=== PATIENT | male | born 1980 | race Caucasian/White ===

== ENCOUNTER 2025-06-28 13:33 | Emergency (ER) | payer OTHER, SELFPAY ==
[2025-06-28 13:34] VITALS: BP 148/96
[2025-06-28 13:39] LABS: Glucose - Point of Care 104 mg/dl (70-99)
--- NOTE | 2025-06-28 13:41 | CON.NEURO ---
Addendum entered and electronically signed by Kevin Barillas MD 06/28/25 15:54:
Studies reviewed.
I have personally examined the patient. I reviewed and agree with the WHEEL INSTALLER's Note.
My addenda:
Awake, alert, interactive. No acute distress.
Speech intact.
Follows 2-step requests w/o difficulty. No tremor.
Extra-ocular movements grossly intact.
Facial movements full and symmetric. Hearing intact to normal conversational volume.
Normal UE movements bilaterally.
Neck: full ROM.
Chest: no dyspnea
Heart: no JVD
Ext: (-) Clubbing, (-) Cyanosis, (-) Edema
IMPRESSIONS/RECOMMENDATIONS:
Abrupt onset of aphasia with suggested left carotid artery occlusion and suggestion of superior sagittal sinus thrombosis with questionable apical blood
Differential diagnosis in this patient is that he is experiencing aphasia either due to an occlusion of the left distal carotid artery and/or thrombosis of the superior sagittal sinus.
Urgent transfer to [facility] due to possible need for clot extraction from the distal left carotid artery
Consideration for CT venogram due to the suggestion of superior distal sagittal sinus thrombosis and surrounding subarachnoid blood
Consideration for urgent initiation of heparin IV to remediate thrombosis
Total Critical Care Time=�40 minutes.
The neurological system is affected and the action required by me to prevent further deterioration or potential was control over the item listed first in the Impressions and Recommendations section of this note.
I was present and personally examined the patient.� I discussed patient care with other professional health care providers.
Also discussed with family.
All questions answered.
Will continue to follow patient.
Original Note:
Documented by User: Laura Valente NP 06/28/25 15:43
Neuro Assessment/Plan
Assessment
Patient is a 45 year old male with past medical history significant for HTN presenting to [facility] on 06/28/2025 for speech difficulty, headache and right arm and right face tingling.
Head CT: Unremarkable unenhanced CT of the head. ASPECT score: 10
CTA head and neck: Severe narrowing of the extracranial left internal carotid artery with possible focal occlusion distally. Reconstitution of the intracranial left ICA with patency of the proximal segment of the left middle cerebral artery.
Impression: abrupt onset of aphasia with right arm and right face tingling found to have L ICA occlusion on CTA
Plan
-transfer to [facility]
-continue neurochecks
All questions encouraged and answered, plan of care discussed with Dr. Barillas, Dr. Avilez, patient and family
Consultation
Order
Date of Consultation: 06/28/25
Requesting Provider: ED
Reason for Consult: stroke alert
Subjective/Objective
Subjective Data
Date of Service: June 28, 2025
Patient is a 45 year old male with past medical history significant for HTN presenting to [facility] on 06/28/2025 for speech difficulty, headache and right arm and right face tingling. He states his right arm and right face tingling started at 1330 today
along with speech difficulties which prompted him to come to ER as a stroke alert. He also notes he gets headaches once a month, and currently has headache on left side with eye ptosis 6/10 pain, denies nausea, photophobia or phonophobia. He states
his father at a young age of a brain aneurysm. In the ED his BP 130/93 HR 80. Current NIHSS 1 for mild aphasia as patient has some difficulty with naming objects. CTA head and neck concerning for severe narrowing of the extracranial left
internal carotid artery with possible focal occlusion distally. Head CT concerning for dural sinus thrombosis. Spoke with [facility] who recommended against TNK but plan to send out for evaluation of stent given left ICA occlusion. Plan to
transfer to [facility].
Objective Data
Vital Signs
Temp Pulse Resp BP
97.7 F 94 18 148/96
06/28/25 13:34 06/28/25 13:34 06/28/25 13:34 06/28/25 13:34
Patient Allergies
ENVIRONMENTAL Allergy (Uncoded 03/15/22 10:05)
Unknown
CVA Assessment
Onset of Stroke Symptoms
Onset of symptoms known: Yes
Date of onset of symptoms: 06/28/25
Time of onset of symptoms: 13:30
Time pt last seen normal is known: Yes
NIH Stroke Score
Level of Consciousness: 0 - Alert
LOC Questions: 0-Answers both correctly
LOC Commands: 0-Performs both correctly
Best Horizontal Gaze: 0-Normal
Visual Pacheco: 0=Normal, no visual loss
Facial Palsy: 0=Normal, symmetrical
Motor - Right Arm: 0=No drift 10 seconds
Motor - Left Arm: 0=No drift 10 seconds
Motor - Right Le-No drift 5 seconds
Motor - Left Le-No drift 5 seconds
Limb Ataxia: 0-Absent
Sensation: 0-Normal
Best Language: 1-Mild aphasia
Dysarthria: 0-Normal
Extinction and Inattention: 0-No abnormality
NIH Total Score:: 1
Tenecteplase Contraindications
Inclusion and Exclusion criteria reviewed: Yes
IAT Contraindications: NIHSS < 6
Modified Vernon Score (MRS)
-
Modified Vernon Scale (mRS): No significant disability. Able to carry out usual activities.
Score: 1
Physical Exam
-
General: Comfortable and Appears Stated Age
Eyes: PERRLA
HEENT: Normocephalic, Atraumatic and Anicteric
Neck: Full Range of Motion
Respiratory: No Dyspnea
Cardiac: No JVD
GI: Non-distended
Skin: Unremarkable
Extremities: No Clubbing, No Cyanosis and No Edema
Psych: Unremarkable
Extended Neurological Exam
Mood & Affect: Mood Unremarkable
Attention Span & Concentration: Awake, Alert, Interactive and No Difficulty with 2 Step Request
Memory: Unremarkable
Tremor: Hand Tremor Absent and Head Tremor Absent
Speech: Expressive Aphasia
Cranial Nerve II: Left Eye: Visual Pacheco Intact
Cranial Nerve II: Right Eye: Visual Pacheco Intact
Cranial Nerves III, IV, : Extraocular Movement: Ptosis on Left
Cranial Nerve VII: Facial Symmetry: Reduced (left eye)
Cranial Nerve VIII: Hearing: Unremarkable Hearing to Normal Conversational Volume
Cranial Nerves IX, X: Palate Movement: Palate Elevation Symmetric
Cranial Nerve XI: Shoulder Shrug: Unremarkable
Muscle Strength, Overall: Full Throughout
Pronator Drift: No Drift in Upper Extremities and No Drift in Lower Extremities
Coordination: Qhwdal-kilt-aluzif Testing Unremarkable and Reaches for Objects without Difficulty
Data Reviewed
-
CT-A: Report Reviewed and Image Reviewed
CT-Perfusion: Report Reviewed and Image Reviewed
CT Head: Report Reviewed and Image Reviewed
Labs: Report Reviewed
Reviewed with: Physician, Nurse, Patient and Family
Old Records: Summarized
Medications
-
Home Medications
�Medication �Instructions �Recorded
amlodipine 5 mg tablet 5 mg PO DAILY 03/12/22
cetirizine 10 mg tablet 10 mg PO DAILY 03/12/22
fluticasone propionate 50 2 spray intranasal DAILY 03/12/22
mcg/actuation nasal
spray,suspension
losartan 50 mg tablet 100 mg PO DAILY 03/12/22
Past History
Past History
ED Past Medical History: HTN
ED Past Surgical History: None
Family/Social History
Tobacco: Non-smoker
Alcohol: Occasional
Drug: None
Personal:
Living: with family
Employment: Employed
Family History: Other

Documented by User: Kevin Barillas MD 06/28/25 15:45
CVA Assessment
NIH Stroke Score
NIH Total Score:: 1
Modified Perico Score (MRS)
-
Score: 1
--- NOTE | 2025-06-28 13:50 | ED.CVA ---
History of Present Illness
General
Chief Complaint: CVA/TIA Symptoms
Source: patient and spouse
Exam Limitations: none
Time Seen by Provider: 06/28/25 13:44
Nursing documentation reviewed up to this point in time: agreed with
Onset of Stroke Symptoms
Onset of symptoms known: Yes
Date of onset of symptoms: 06/28/25
Time of onset of symptoms: 13:00
History of Present Illness
History of Present Illness:
45-year-old male history of hypertension through triage had headache for a week droopy eyelid for couple days slurred speech for an hour no history of seizures no history of stroke
Past History
Past History
ED Past Medical History: HTN
ED Past Surgical History: None
Social History
Tobacco: Non-smoker
Alcohol: Occasional
Drug: None
Personal:
Living: with family
Employment: Employed
Family History
Family History: Other
Review of Systems
Review of Systems
All Other Systems: Not applicable
Constitutional: Denies fever
EENT: Reports no symptoms
Respiratory: Reports no symptoms
Cardiac: Reports no symptoms
ABD/GI: Reports no symptoms
Neurological: Reports dizzy, headache and other (Speech abnormality)
Phy Exam
Physical Exam
Physical Exam:
Physical Exam
General: no apparent distress, not acutely ill
Neck: No tongue bite
Heart: s1/s2 regular rate and rhythm, no murmur. equal radial pulses.
Lungs: no acute respiratory distress. clear bilaterally
Abdomen: Soft nontender
Neuro: alert and oriented. Slight slurred speech
Skin: no rash
Psychiatric: well kept. interactive and cooperative
Extremities: no edema.
Course
Orders/Labs/Results
Orders:
Orders
06/28/25 13:45
Electrocardiogram (*1) Urgent
Reason for Study: Syncope
CT HEAD STROKE ALERT W/o Cont Urgent
Comment:
Reason For Exam: aphaisa
CT HEAD/NECK ANG STROKE ALERT Urgent
Comment:
Reason For Exam: aphasia
NEUROLOGY CONSULT Urgent
Consulting Provider: Kevin Barillas
Was physician already notified: Yes
Cardiac Monitoring- Treatment ONCE
EKG- Treatment ONCE
06/28/25 13:47
Add On- LAB Routine
Tests Added?: folate, ferritin, TSH, free t4, B12, lipid panel, hgb a1c
06/28/25 13:49
Complete Blood Count/With Diff Urgent
Ferritin Urgent
Folate Urgent
Free T4 Urgent
Glycohemoglobin (HgbA1c) Urgent
PTT Urgent
Prothrombin Time Urgent
TSH Urgent
Vitamin B12 Urgent
06/28/25 13:59
Prochlorperazine [Compazine] 10 mg IV NOW STA
Prochlorperazine [Compazine] 10 mg IV Q6HPRN PRN
06/28/25 14:43
CT BRAIN PERF STROKE ALERT Urgent
Comment:
Reason For Exam: aphasia
06/28/25 15:26
Cardiovascular Evaluation Urgent
Comprehensive Metabolic Panel Urgent
Abnormal Lab Results
06/28/25 06/28/25 06/28/25
13:39 13:49 15:26
MPV 10.6 H fL
(7.4-10.4)
Creatinine 0.6 L mg/dL
(0.7-1.3)
Triglycerides 158 H mg/dl
(10-149)
Total Cholesterol 230 H mg/dl
(50-199)
VLDL Cholesterol, Calc 31 H mg/dl
(0-30)
POC Glucose 104 H mg/dl
(70-99)
06/28/25 13:49
06/28/25 15:26
Vital Signs
Initial and Last Documented VS:
Initial Vital Signs
Temp Pulse Resp BP
97.7 F 94 18 148/96
06/28/25 13:34 06/28/25 13:34 06/28/25 13:34 06/28/25 13:34
Last Documented Vital Signs
Temp Pulse Resp BP Pulse Ox
97.7 F 85 17 136/88 99
06/28/25 13:34 06/28/25 15:30 06/28/25 15:30 06/28/25 15:17 06/28/25 14:00
MDM/Problems Addressed
Differential Diagnosis Includes:
Migraine stroke intracerebral hemorrhage seizure Zachary's paralysis
MDM/Problems Addressed:
Slurred speech headache
Chronic conditions affecting care: HTN
Acute Exacerbation and/or Progression of Chronic Illness: HTN
*Radiology
Radiology exam reviewed: radiology read reviewed
*Pulse Oximetry
SaO2: 99
Oxygen Mode of Delivery: Room air
Patient hypoxic: no
*EKG
Interpreted by ED Provider?: Yes
Interpretation: abnormal
Comparison EKG: no comparison EKG present
Heart Rate: 78
Rate: normal
Rhythm: sinus
Ischemia: non-specific ST changes
*Sintering Plant Supervisor Interpretation
Rate: normal
Interpretation: normal
Heart Rate: 78
Rhythm: sinus
*Critical Care Note
Total Time (30-74mins, 75-104mins- exclusive of procedures): 76
Update Note
Update Note:
230p
dw radiology
occulusion left ICA
dw neuro
dw patient
symtpoms inproved
to HUP
NIH 1
ED Attending Note
-
Portions of this chart may have been created with voice recognition software.� Occasional wrong word or��sound alike� substitutions may have occurred due to the inherent limitations of voice recognition software.
Discharge Plan
Departure
Patient Disposition: Acute Care Hospital
Date of Disposition: 06/28/25
Time of Disposition: 14:47
Patient with high blood pressure during this ER visit?: No
Condition: Serious
Discharge Problem:
Carotid artery occlusion
Prescriptions:
No Action
amlodipine 5 MG tablet
5 mg PO DAILY
acetaminophen [Tylenol] 325 mg Tablet
650 mg PO DAILYPRN PRN (Reason: mild pain)
trazodone 50 mg Tablet
50 mg PO HS
ibuprofen [Advil] 200 mg Tablet
400 mg PO DAILYPRN PRN (Reason: mild pain)
losartan 100 mg Tablet
100 mg PO DAILY
loratadine [Claritin] 10 mg Tablet
10 mg PO DAILY
Referrals:
Edilia Ochoa MD [Family Provider, Internal Medicine]
Hospital Transfer
Other hospital: [facility]
I certify that the patient requires transfer: Yes
Discussed case with accepting physician: jalyn
Reason for transfer: higher level of care
Interventions
Interventions:
*Risk Screen - Suicide Last Done: 06/28/25 14:05
*General Assessment Last Done: 06/28/25 14:05
*Neglect/Abuse Screening Last Done: 06/28/25 14:05
*ED COVID-19 Vaccine History Last Done: 06/28/25 14:05
*ED Influenza Vaccine History Last Done: 06/28/25 14:05
*Nursing Disposition Last Done: 06/28/25 16:18
ED- Pulmonary Assessment Last Done: 06/28/25 14:30
ED- Neurological Assessment Last Done: 06/28/25 14:30
ED- Cardiac Assessment Last Done: 06/28/25 14:30
ED Swallowing Screen Last Done: 06/28/25 16:16
Discharge Date and Time
Discharge Date/Time: 06/28/25 16:19
Print Language: ERITREAN
[2025-06-28 13:56] LABS: Hematocrit 46.4 % (39.0-52.0); Hemoglobin 15.9 g/dL (13.0-18.0); Mean Corp Hgb Conc. 34.3 g/dL (33.0-37.0); Mean Corpuscular Volume 84.8 fL (80.0-94.0); Nucleated Red Blood Cells % 0 % (-); Platelet Count 222 10^3/uL (130-400); Red Cell Dist. Width 12.8 % (11.5-14.5)
[2025-06-28 14:05] LABS: INR 1.02; PT 13.7 Sec (11.4-14.6)
[2025-06-28 14:06] LABS: APTT 27.0 Sec (23.4-35.0)
[2025-06-28] MEDS: COMPAZINE 10 MG IV (14:17)
[2025-06-28 14:57] LABS: TSH 3.73 uIU/ml (0.47-4.68)
[2025-06-28 14:58] LABS: Ferritin 144.0 ng/ml (17.9-464.0)
[2025-06-28 15:17] VITALS: BP 136/88
[2025-06-28 15:30] LABS: Folate 9.1 ng/ml (2.76-20); Vitamin B12 464 pg/ml (239-931)
[2025-06-28 16:03] LABS: ALT (SGPT) 19 U/L (0-50); AST (SGOT) 23 U/L (17-59); Albumin 4.7 g/dl (3.5-5.0); Alkaline Phosphatase 66 U/L (38-126); Blood Urea Nitrogen 13 mg/dl (9-20); Calcium 9.1 mg/dl (8.4-10.2); Carbon Dioxide 22 mmol/L (22-30); Chloride 106 mmol/L (98-107); Glucose 95 mg/dl (70-99); HDL Cholesterol 64 mg/dl; LDL Cholesterol, Calculated 135 mg/dl; Potassium 4.1 mmol/L (3.5-5.1); Sodium 135 mmol/L (135-145); Total Protein 7.4 g/dl (6.3-8.2); Very Low Density Lipoprotein 31 mg/dl (0-30); eGFR > 60.00
[2025-06-29 09:00] LABS: Glycohemoglobin (HgbA1c) 5.3 % (4.0-5.6)
== END 2025-06-28 16:19 | disposition short-term general hospital (02) ==
LOC: EMR 13:33
PROVIDERS: CONSULT PHYSICIAN Psychiatry & Neurology Neurology; EMERGENCY PHYSICIAN Emergency Medicine; FAMILY PHYSICIAN Internal Medicine
DX: I65.22 Occlusion and stenosis of left carotid artery (principal); I10 Essential (primary) hypertension; R29.701 NIHSS score 1; Z63.4 Disappearance and death of family member; Z82.3 Family history of stroke
CPT/HCPCS: 99291; 96374; 0042T; 70450; 70496; 70498; 80053; 80061; 82607; 82728; 82746; 82962; 83036; 84439; 84443; 85025; 85610; 85730; 93005; Q9967